=== PATIENT | male | born 1955 | race Caucasian/White ===

== ENCOUNTER 2019-11-16 11:19 | Emergency (ER) | payer BC, SELFPAY ==
--- NOTE | ~2019-11-16 | XR_ITS ---
XR chest 1V portable 11/16/2019 11:57 Indication: Cough and fever. Procedure: AP portable chest Comparison: 12/18/2016 Findings: Patchy left-sided airspace disease, compatible with pneumonia. Borderline heart size. No ed lety, pleural effusion or pneumothorax. Impression: 1: Patchy left-sided airspace disease, compatible with pneumonia. Reviewed, dictated and finalized at location B. Impression: 1: Patchy left-sided airspace disease, compatible with pneumonia.
[2019-11-16 11:27] VITALS: BP 132/87; PULSE 68; RESP 17; TEMP 37.9; O2SAT 100
--- NOTE | 2019-11-16 12:43 | ED.FEVER ---
HPI - Fever General Chief Complaint: Fever Stated Complaint: COVID + Time Seen by Provider: 11/16/19 11:48 Source: patient Mode of arrival: EMS Limitations: no limitations History of Present Illness HPI Narrative: Patient presents with chief complaint of fever, chills, body aches, headache, shortness of breath when ascending up the stairs since this and positive for COVID 9 days ago. Patient reports minimal coughing. Patient denies chest pain or shortness of breath upon resting. Patient states that he has been running high temperatures of 104 degrees that have been decreasing after taking Tylenol which is what he did this morning prior to his arrival. Patient states that his also has COVID. Patient states that his medical history significant for hypertension and high cholesterol. Related Data Allergies Allergy/AdvReac Type Severity Reaction Status Date / Time No Known Allergies Allergy Unknown Unverified 12/14/18 15:38 No Known Allergies Allergy Uncoded 12/14/18 15:38 Review of Systems Review of Systems: Narrative: CONSTITUTIONAL: Reports fever and body aches EYES: Denies visual changes, redness, or discharge. ENT: Denies rhinorrhea, congestion, sore throat, or otalgia. CARDIOVASCULAR: Denies chest pain, palpitations, or edema. RESPIRATORY: Denies cough or dyspnea. GASTROINTESTINAL: Denies abdominal pain, nausea, vomiting, or diarrhea. GENITOURINARY: Denies dysuria or hematuria. SKIN: Denies rash or itching. MUSCULOSKELETAL: Denies back pain, joint pain, or myalgia. NEUROLOGIC: Reports headache, Denies numbness, dizziness, or weakness. PSYCHIATRIC: Denies anxiety or depression. PMFSH Social History Social History Gender identity (if verbalized by the patient): Male Exam Narrative: Exam Narrative: GENERAL: Well-appearing, well-nourished. HEAD: Normocephalic, atraumatic. EYES: PERRLA and EOMI. ENT: Nares clear, no rhinorrhea or epistaxis. Mucous membranes moist. Bilateral TMs pearly merrill nonbulging CHEST: Clear to auscultation. No respiratory distress. No wheezes rales or rhonchi. No tachypnea. Patient able to speak in full sentences without distress. HEART: Regular rate and rhythm. Normal peripheral pulses. SKIN: Warm, dry, no rash. NEURO: No focal deficits. Alert and oriented x3. PSYCH: Normal mood and affect. Course Vital Signs Vital signs: Vital Signs Temperature 100.2 F H 11/16/19 11:27 Pulse Rate 68 11/16/19 11:27 Respiratory Rate 17 11/16/19 11:27 Blood Pressure 132/87 11/16/19 11:27 Pulse Oximetry 100 11/16/19 11:27 Temperature 100.2 F H 11/16/19 11:27 Pulse Rate 64 11/16/19 14:45 Respiratory Rate 16 11/16/19 14:45 Blood Pressure 128/84 11/16/19 14:45 Pulse Oximetry 100 11/16/19 14:45 MDM - Fever MDM Narrative Medical decision making narrative: Patient is not short of breath and is able to ambulate with O2 sat steady in the 90's, his heart rate does increase and with the fevers he has had I believe he will benefit from some fluid hydration. Patient is in agreement with hydration. If at that time he is still stable with stable vitals, ability to ambulate, o2 sat appropriate, he will be discharged home with antibiotics for the pneumonia, tylenol w/codeine for pain&occasional cough, and instructions to follow [facility] COVID isololation procedures. Patient has been hydrated and his vitals have remained stable. Patient ready to be discharged home at this time. RTER instructiosn discussed. Differential Diagnosis Differential diagnosis: Likely cellulitis, fever of unknown origin, community acquired pneumonia, viral infection and influenza Imaging Data Radiologist's impression: ITS Impressions Chest X-Ray 11/16/19 12:00 Impression: 1: Patchy left-sided airspace disease, compatible with pneumonia. Discharge Plan Discharge Clinical Impression: Viral infection Community acquired pneumonia Qualifiers: Laterality: left Lung l
[2019-11-16] MEDS: SODIUM CHLORIDE 0.9% IV 1,000 ML 999 ML IV CONT (13:10)
[2019-11-16 14:45] VITALS: BP 128/84; PULSE 64; RESP 16; O2SAT 100
== END 2019-11-16 15:35 | disposition home or self-care (01) ==
PROVIDERS: Emergency Provider Emergency Medicine; PCP Family Medicine
DX: J18.9 Pneumonia, unspecified organism (principal)
CPT/HCPCS: 71045; 96360; 99283; J7030

== ENCOUNTER → 2019-11-30 09:57 | Outpatient (CLI) | payer BC, SELFPAY ==
--- NOTE | ~2019-11-30 | XR_ITS ---
XR chest 2V DATE: 11/30/2019 10:21 INDICATION: Pneumonia TECHNIQUE: PA and lateral views COMPARISON: 11/16/2019 portable AP chest FINDINGS: Normal heart size. No hilar or mediastinal enlargement. There is minimal aortic unfolding .. There is old pulmonary granulomatous disease. There is mild interstitial infiltrate in the left mid lung field, improved since 11/16/2019. There is mild thoracic scoliosis and degenerative change. IMPRESSION: Mild interstitial infiltrate in the left mid lung , mildly improved since 11/16/2019 Reviewed, dictated and finalized at location B.
== END ==
PROVIDERS: PCP Family Medicine; Visit Provider Family Medicine
DX: J18.9 Pneumonia, unspecified organism (principal); R91.8 Other nonspecific abnormal finding of lung field
CPT/HCPCS: 71046

== ENCOUNTER 2020-10-30 10:37 | Outpatient (CLI) | payer BC, SELFPAY ==
--- NOTE | ~2020-10-30 | XR_ITS ---
EXAMINATION: XR lg joint inject/asp w image DATE: 10/30/2020 11:30 INDICATION: Left shoulder pain TECHNIQUE: A time-out was performed to verify the patient's name, date of , and procedure to b e performed. The procedure including the risks, benefits, and alternatives was discussed with the pat ient. Risks discussed included bleeding and infection. The patient understood the risks and agreed to proceed. The skin overlying the rotator cuff interval of the left glenohumeral joint was prepped an d draped in usual sterile fashion. Anesthetic was administered with 1% lidocaine subcutaneously. A 22 G needle was advanced under fluoroscopic guidance into the joint. Injection of 1 mL of Omnipaque 240 confirmed intra-articular position of the needle. Subsequently, injectate consisting of a 4 mL m ixture of 3:1 1% lidocaine: 40 mg/mL transitional and for total dosage of 40 mg triamcinolone was ins tilled. Washout of contrast was seen confirming intra-articular administration. The needle was remove d and the entry site was cleaned and dressed. There were no immediate complications. Fluoroscopy exp osure time was 0.1 minutes. The total number of images was 2. FINDINGS: Real-time fluoroscopy demonstrates the needle and contrast in the left glenohumeral joint. Patient's pain prior to procedure:3/10. Patient's pain following the procedure: 2/10. A portion of t he injected contrast appears to extend into the subacromial/subdeltoid bursa on the final image sugge sting possibility of a full-thickness rotator cuff tear. Remainder of the contrast appears to extend to the axillary recess. IMPRESSION: 1. Left glenohumeral injection of local anesthetic and steroid with decrease in the patient's present ing pain. 2. A portion of the injected contrast appears to extend into the subacromial/subdeltoid bursa which i s suspicious for a full-thickness rotator cuff tear. Could consider MRI for further evaluation as cli nically indicated. Reviewed, dictated and finalized at location A. IMPRESSION: 1. Left glenohumeral injection of local anesthetic and steroid with decrease in the patient's presenting pain. 2. A portion of the injected contrast appears to extend into the subacromial/dow bdeltoid bursa which is suspicious for a full-thickness rotator cuff tear. Coul d consider MRI for further evaluation as clinically indicated.
== END 2020-10-30 10:38 | disposition home or self-care (01) ==
LOC: ANHIMG 10:41
PROVIDERS: PCP Family Medicine; Visit Provider Physician Assistant
DX: M25.512 Pain in left shoulder (principal)
CPT/HCPCS: 20610; 77002; J3301; Q9966

== ENCOUNTER 2021-01-30 00:21 | Day surgery (SDC) | payer BC, SELFPAY ==
[2021-01-15 12:59] VITALS: BMI 25.7
[2021-01-30 07:43] VITALS: BP 126/90; PULSE 51; RESP 16; TEMP 36.6; O2SAT 100; BMI 26.4
[2021-01-30] MEDS: LACTATED RINGERS 1,000 ML 150 ML IV CONT (07:52)
--- NOTE | 2021-01-30 07:54 | WPDGICN ---
Assessment and Plan Assessment and plan (1) Family history of colon cancer in father: Code(s): Z80.0 - Family history of malignant neoplasm of digestive organs Status: Acute Assessment and Plan: Patient presents for screening colonoscopy. His father had colon cancer. Last colonoscopy was at least 5 years ago. GI Consult Note Consult date/time: 01/30/21 07:54 HPI: Ta Whitman is a 65 year old male Presents for colonoscopy. Patient reports that his current weight appetite and bowel movements are normal. Patient denies abdominal pain. He has had no recent bleeding. Family history is significant that his father had colon cancer. For this reason he returns for screening colonoscopy. Review of Systems Review of Systems: All systems reviewed & are unremarkable except as noted in HPI and below PMFSH Social History Social History Smoking status: Never smoker Alcohol intake: current Drinks per week: 12 Living arrangements: with family Gender identity (if verbalized by the patient): Male Spiritual care concerns: No Meds Home Medications and Allergies Home Medications Medication Instructions Recorded Confirmed Type atorvastatin 20 mg PO DAILY 01/15/21 01/15/21 History candesartan 16 mg PO DAILY 01/15/21 01/15/21 History cetirizine [Zyrtec] 10 mg PO DAILY 01/15/21 01/15/21 History Allergies Allergy/AdvReac Type Severity Reaction Status Date / Time No Known Allergies Allergy Unknown Unverified 01/15/21 12:58 Vital Signs Vital Signs - 24 hr 01/30/21 07:43 Temperature 97.9 F Pulse Rate 51 L Respiratory Rate 16 Blood Pressure 126/90 Pulse Oximetry 100 Exam Narrative: Physical exam reveals patient to be alert. Vital signs stable. HEENT exam is unremarkable. Patient is anicteric. Lungs are clear to auscultation and percussion. Heart is without murmur or extra sounds. Abdominal exam bowel sounds are present soft nontender with no organomegaly. Digital external rectal exam is normal.
--- NOTE | 2021-01-30 08:11 | WPDANESEPPF ---
Anes - Initial Pre Proc Eval Procedure: Operation Date: 01/30/21 08:45 Proposed Procedures p Screening Colonoscopy - Tanner Duffy MD Date/Time: 01/30/21 08:11 Surgeon: Tanner Duffy MD Pre Op Diagnosis: family hx colon CA, neoplasm screening Patient Data Age: 65 Gender: M Height: 1.83 m Weight: 88.4 kg Last Vital Signs Temp 97.9 F 01/30/21 07:43 Pulse 51 L 01/30/21 07:43 Resp 16 01/30/21 07:43 BP 126/90 01/30/21 07:43 Pulse Ox 100 01/30/21 07:43 Allergies Allergy/AdvReac Type Severity Reaction Status Date / Time No Known Allergies Allergy Unknown Unverified 01/15/21 12:58 Home Medications Medication Instructions Recorded Confirmed Type atorvastatin 20 mg PO DAILY 01/15/21 01/15/21 History candesartan 16 mg PO DAILY 01/15/21 01/15/21 History cetirizine [Zyrtec] 10 mg PO DAILY 01/15/21 01/15/21 History Patient hx anesthesia problems: none Family hx anesthesia problems: none Results Review: All pre-operative results and documents have been reviewed as part of the pre-operative evaluation. [facility] Past Medical History Medical History (Updated 01/30/21 @ 08:11 by Doug De La Rosa MD) Hyperlipidemia Hypertension Social History Social History Smoking status: Never smoker Alcohol intake: current Drinks per week: 12 Living arrangements: with family Gender identity (if verbalized by the patient): Male Spiritual care concerns: No Anes - Eval Final PreProcedure Day of Procedure 01/30/21 08:11 Patient weight: normal Heart: regular rate and rhythm Lungs: clear to auscultation Airway: Mallampati scale class II Last oral intake: >/= 8 hours ASA classification: II Emergent: no Anesthetic plan: proceed Anesthesia type and monitoring: general GIVS and standard monitoring Results Review: All pre-operative results and documents have been reviewed as part of the pre-operative evaluation. Informed Consent: The patient's anesthetic plan and its attendant risks and benefits were discussed with the patient/family/POA. Questions were solicited and answers provided to the satisfaction of the patient/family/POA.
[2021-01-30 08:49] VITALS: BP 121/83; PULSE 60; RESP 20; O2SAT 100
[2021-01-30 09:09] VITALS: BP 129/86; PULSE 44; RESP 17; O2SAT 100
[2021-01-30 09:19] VITALS: BP 145/91; PULSE 43; RESP 20; O2SAT 100
== END 2021-01-30 09:25 | disposition home or self-care (01) ==
PROVIDERS: PCP Family Medicine; Visit Provider Internal Medicine Gastroenterology
PROC: 0DJD8ZZ Inspection of Lower Intestinal Tract, Via Natural or Artificial Opening Endoscopic (ICD-10-PCS; CPT 45378; principal; 2021-01-30 08:45)
DX: Z12.11 Encounter for screening for malignant neoplasm of colon (principal); D12.3 Benign neoplasm of transverse colon; D12.5 Benign neoplasm of sigmoid colon; K64.8 Other hemorrhoids; Z80.0 Family history of malignant neoplasm of digestive organs; I10 Essential (primary) hypertension; E78.5 Hyperlipidemia, unspecified
CPT/HCPCS: 45385; 88305; J2704; J7120

== ENCOUNTER 2021-06-19 08:11 | Outpatient (CLI) | payer BC, SELFPAY ==
[2021-06-19 11:36] LABS: SARS-CoV-2 RNA PCR Negative (Negative)
== END 2021-06-19 08:12 | disposition home or self-care (01) ==
LOC: CHSLAB 08:13
PROVIDERS: PCP Family Medicine; Visit Provider Family Medicine
DX: Z20.822 Contact with and (suspected) exposure to COVID-19 (principal)
CPT/HCPCS: C9803; U0003; U0005